=== PATIENT | male | born 1960 | race Caucasian/White ===

== ENCOUNTER 2017-08-05 12:49 | Emergency (ER) | payer MEDICAID ==
[~2017-08-05] VITALS: Ht 172.7 cm; Wt 65.9 kg
[2017-08-05 12:51] VITALS: BP 122/85
[2017-08-05] MEDS ORDERED: CEFAZOLIN 1,000 MG ONE (13:14)
[2017-08-05] MEDS ORDERED: IBUPROFEN 200 MG TABLET ONE (13:15)
[2017-08-05] MEDS ORDERED: OXYcodone/APAP 5/325MG TABLET ONE (13:15)
[2017-08-05] MEDS ORDERED: SULFAMETH./TRIMETHOPRIM DS 800MG/160MG TABLET ONE (13:15)
[2017-08-05] MEDS ORDERED: IBUPROFEN 200 MG TABLET PO ONE (13:30)
[2017-08-05] MEDS ORDERED: SULFAMETH./TRIMETHOPRIM DS 800MG/160MG TABLET PO ONE (13:30)
[2017-08-05] MEDS ORDERED: OXYcodone/APAP 5/325MG TABLET PO ONE (13:30)
[2017-08-05] MEDS ORDERED: CEFAZOLIN 1,000 MG IM ONE (13:30)
[2017-08-05 13:36] LABS: HEMATOCRIT 48.5 % (39.2-51.8); HEMOGLOBIN 16.4 g/dL (13.7-18.0); WHITE BLOOD COUNT 8.3 x10^3/uL (3.4-10)
[2017-08-05 13:47] LABS: BLOOD UREA NITROGEN 6 mg/dL (7-18)
[2017-08-05] MEDS ORDERED: BACITRACIN ZINC OINT 500U/GM, 0.9 GM ONE (14:49)
== END 2017-08-05 15:02 | disposition home or self-care (01) ==
LOC: ED 14:50
DX: L03.113 Cellulitis of right upper limb (principal)
CPT/HCPCS: 36415; 73110; 80048; 85025; 85651; 86141; 96372; 99285; J0690

== ENCOUNTER 2019-01-27 13:29 | Emergency (ER) | payer MEDICAID ==
[~2019-01-27] VITALS: Ht 172.7 cm; Wt 65.3 kg
[2019-01-27 13:31] VITALS: BP 135/85
== END 2019-01-27 15:23 | disposition home or self-care (01) ==
LOC: ED 15:04
DX: S52.591A Other fractures of lower end of right radius, initial encounter for closed fracture (principal); S52.611A Displaced fracture of right ulna styloid process, initial encounter for closed fracture; F17.200 Nicotine dependence, unspecified, uncomplicated; X58.XXXA Exposure to other specified factors, initial encounter; Y93.89 Activity, other specified; Y92.89 Other specified places as the place of occurrence of the external cause; Y99.8 Other external cause status
CPT/HCPCS: 29125; 99283

== ENCOUNTER 2019-01-30 02:30 | Emergency (ER) | payer MEDICAID ==
[~2019-01-30] VITALS: Ht 172.7 cm; Wt 65.3 kg
[2019-01-30] MEDS ORDERED: LIDOCAINE 2%, 20ML SQ ONE (03:00)
[2019-01-30] MEDS ORDERED: LIDOCAINE-MPF 1%, 5ML ONE (03:00)
[2019-01-30] MEDS ORDERED: ACETAMINOPHEN 500 MG TABLET PO ONE (03:30)
[2019-01-30] MEDS ORDERED: ACETAMINOPHEN 500 MG TABLET ONE (03:49)
[2019-01-30 03:54] VITALS: BP 133/82
== END 2019-01-30 03:56 | disposition home or self-care (01) ==
LOC: ED 03:14
DX: L03.012 Cellulitis of left finger (principal)
CPT/HCPCS: 10060; 99283; 99284

== ENCOUNTER 2019-05-13 16:03 | Emergency (ER) | payer MEDICAID ==
[~2019-05-13] VITALS: Ht 167.6 cm; Wt 63.2 kg
--- NOTE | 2019-05-13 16:43 | NUR ---
PT AMBULATORY TO RME FROM LOBBY WITH STEADY GAIT. NAD NOTED. RESP REGULAR AND UNLABORED. AWAITING EVAL BY PA. CALL LIGHT IN REACH. FALL PRECAUTIONS IN PLACE.
--- NOTE | 2019-05-13 17:04 | NUR ---
JJ PA AT BEDSIDE FOR EVALUATION
--- NOTE | 2019-05-13 17:29 | NUR ---
RX REQUESTED FROM PHARMACY
[2019-05-13] MEDS ORDERED: IBUPROFEN 200 MG TABLET PO ONE (17:30)
[2019-05-13] MEDS ORDERED: IBUPROFEN 200 MG TABLET ONE (17:35)
[2019-05-13] MEDS ORDERED: MUPIROCIN OINT 2%, 22GM TP ONE (18:00)
--- NOTE | 2019-05-13 18:00 | NUR ---
RX REQUESTED FROM [facility], [facility] CALLED, SENDING MEDICATION
--- NOTE | 2019-05-13 18:15 | NUR ---
MEDICATION APPLIED TO WOUNDS ON BILATERAL HANDS AND ANKLES PER ROB PUCKETT. AWAITING CHART AND DISCHARGE INSTRUCTIONS.
[2019-05-13 18:29] VITALS: BP 119/81
== END 2019-05-13 18:31 | disposition home or self-care (01) ==
LOC: ED 18:00
DX: L03.113 Cellulitis of right upper limb (principal); L03.116 Cellulitis of left lower limb; L03.115 Cellulitis of right lower limb; L03.114 Cellulitis of left upper limb; F17.200 Nicotine dependence, unspecified, uncomplicated
CPT/HCPCS: 99283

== ENCOUNTER 2019-11-04 10:39 | Emergency (ER) | payer MEDICAID ==
[~2019-11-04] VITALS: Ht 172.7 cm; Wt 66.0 kg
[2019-11-04 10:51] VITALS: BP 131/89
[2019-11-04] MEDS ORDERED: NEOSPORIN OINT. PKT 1 PACKET ONE (11:07)
[2019-11-04] MEDS ORDERED: DIPH,PERTUSS(ACELL),TET VAC/PF 0.5 ML IM-VACC ONE ×2 (11:11→11:30)
[2019-11-04] MEDS ORDERED: CEFAZOLIN 1,000 MG ONE (11:11)
[2019-11-04] MEDS ORDERED: CEFAZOLIN 1,000 MG IM ONE (11:30)
== END 2019-11-04 12:33 | disposition home or self-care (01) ==
LOC: ED 12:27
DX: L03.012 Cellulitis of left finger (principal); M79.642 Pain in left hand
CPT/HCPCS: 29125; 73130; 90471; 90715; 96372; 99283; J0690

== ENCOUNTER 2019-11-06 10:07 | Emergency (ER) | payer MEDICAID ==
[~2019-11-06] VITALS: Ht 172.7 cm; Wt 64.8 kg
[2019-11-06 10:20] VITALS: BP 110/73
== END 2019-11-06 11:08 | disposition home or self-care (01) ==
LOC: ED 10:50
DX: S60.423D Blister (nonthermal) of left middle finger, subsequent encounter (principal); X58.XXXD Exposure to other specified factors, subsequent encounter
CPT/HCPCS: 99281

== ENCOUNTER 2019-11-26 15:25 | Emergency (ER) | payer MEDICAID ==
[~2019-11-26] VITALS: Ht 172.7 cm; Wt 67.5 kg
[2019-11-26 15:37] VITALS: BP 151/84
--- NOTE | 2019-11-26 15:56 | NUR ---
PT CAME IN CO OF POSSIBLE LEFT MIDDLE FINGER INFECTION. SKIN IS TORN ON LEFT MIDDLE FINGER AND FINGER IS SWOLLEN. SWELLING EXTENDS DOWN TO HIS LEFT HAND WELL. THIS HAS BEEN ONGOING FOR ABOUT 3 WEEKS. AND THIS IS THE 3RD TIME HE HAS CAME INTO THE ER. HE HAS COMPLETED A COURSE OF ABX ALREADY. CALL LIGHT WITHIN REACH
[2019-11-26] MEDS ORDERED: NEOSPORIN OINT. PKT 1 PACKET ONE ×3 (16:08→16:21)
== END 2019-11-26 16:49 | disposition home or self-care (01) ==
LOC: ED 16:44
DX: S61.233A Puncture wound without foreign body of left middle finger without damage to nail, initial encounter (principal); F17.200 Nicotine dependence, unspecified, uncomplicated; X58.XXXA Exposure to other specified factors, initial encounter; Y93.89 Activity, other specified; Y92.89 Other specified places as the place of occurrence of the external cause; Y99.8 Other external cause status
CPT/HCPCS: 99283

== ENCOUNTER 2019-12-13 01:01 | Emergency (ER) | payer MEDICAID ==
[~2019-12-13] VITALS: Ht 172.7 cm; Wt 66.0 kg
[2019-12-13] MEDS ORDERED: KETOROLAC 30 MG/1 ML ONE (01:40)
--- NOTE | 2019-12-13 01:49 | NUR ---
Medicated per MAR, given ice pack for knee. Side rails up, call light within reach. Waiting for xray.
--- NOTE | 2019-12-13 01:57 | NUR ---
PT TO XRAY VIA PAM.
[2019-12-13] MEDS ORDERED: KETOROLAC 30 MG/1 ML IM ONE (02:00)
--- NOTE | 2019-12-13 02:05 | NUR ---
PT BACK FROM [facility] VIA [facility] AT THIS TIME.
[2019-12-13] MEDS ORDERED: LIDOCAINE 1%, 10ML INFIL ONE (02:30)
[2019-12-13] MEDS ORDERED: LIDOCAINE-MPF 1%, 5ML ONE (02:33)
--- NOTE | 2019-12-13 04:52 | NUR ---
PT D/C WITH D/C SUMMARY AND SCRIPTS. ALL QUESTIONS ANSWERED. PT VERBALIZES UNDERSTANDING OF NEED FOR HOME CARE AND F/U INSTRUCTIONS. PT AMBULATES TO REGISTRATION DESK WITH SLOW AND STEADY GAIT FOR D/C HOME.
[2019-12-13 04:54] VITALS: BP 147/89
== END 2019-12-13 04:56 | disposition home or self-care (01) ==
LOC: ED 01:50
DX: M25.561 Pain in right knee (principal); F17.200 Nicotine dependence, unspecified, uncomplicated; W01.0XXA Fall on same level from slipping, tripping and stumbling without subsequent striking against object, initial encounter; Y93.01 Activity, walking, marching and hiking; Y92.89 Other specified places as the place of occurrence of the external cause; Y99.8 Other external cause status
CPT/HCPCS: 20610; 73564; 82945; 83615; 84157; 84560; 85810; 87070; 87205; 89050; 89060; 96372; 99284; J1885

== ENCOUNTER 2020-01-08 17:14 | Emergency (ER) | payer MEDICAID ==
[~2020-01-08] VITALS: Ht 170.2 cm; Wt 64.4 kg
[2020-01-08 17:18] VITALS: BP 107/71
--- NOTE | 2020-01-08 17:47 | NUR ---
PT HERE FOR BEDBUGS- STATES HE WAS SEEN RECENTLY FOR HX OF SAME. REQUESTING MEDICATION AND NEW CLOTHES.
--- NOTE | 2020-01-08 17:49 | NUR ---
EVENT DESIGNER SUPPLYING PT WITH CLOTHES FROM [employer].
== END 2020-01-08 18:15 ==
LOC: ED 18:00
DX: L03.90 Cellulitis, unspecified (principal); B86 Scabies; F17.210 Nicotine dependence, cigarettes, uncomplicated
CPT/HCPCS: 99283

== ENCOUNTER 2020-02-28 12:49 | Emergency (ER) | payer MEDICAID ==
[~2020-02-28] VITALS: Ht 172.7 cm; Wt 65.0 kg
--- NOTE | 2020-02-28 12:57 | NUR ---
PT BIB [facility]. WAS FOUND LYING ON THE SIDEWALK AND WAS UNABLE TO AMBULATE. PT ADMITS TO DRINKING TODAY. PTS RIGHT KNEE IS VERY SWOLLEN AND IS VERY PAINFUL. PT SAYS HE FELL OFF A BUILDING. PT RESTING IS HOOKED UP TO UNISAW OPERATOR, PULSE OX. 94% ON 2 LITERS. PT DNEIES MEDICAL HX
[2020-02-28 14:04] VITALS: BP 97/66
--- NOTE | 2020-02-28 14:05 | NUR ---
PT RESTING IN [facility]. WATCHING TV
[2020-02-28] MEDS ORDERED: HYDROcodone/APAP 5/325 TABLET ONE (14:14)
--- NOTE | 2020-02-28 14:17 | NUR ---
PT MEDICATED PER MAR
[2020-02-28] MEDS ORDERED: HYDROcodone/APAP 5/325 TABLET PO ONE (14:30)
== END 2020-02-28 15:37 | disposition home or self-care (01) ==
LOC: ED 12:56
DX: S82.001A Unspecified fracture of right patella, initial encounter for closed fracture (principal); W13.9XXA Fall from, out of or through building, not otherwise specified, initial encounter; Y93.89 Activity, other specified; Y92.89 Other specified places as the place of occurrence of the external cause; Y99.8 Other external cause status
CPT/HCPCS: 99283

== ENCOUNTER 2020-04-15 14:15 | Emergency (ER) | payer MEDICAID ==
[~2020-04-15] VITALS: Ht 180.3 cm; Wt 70.0 kg
[2020-04-15 14:25] VITALS: BP 109/57
--- NOTE | 2020-04-15 14:29 | NUR ---
BREAK RN:: PT LAYING IN BED, YELLING, "FUCK YOU", REPEATEDLY. PT CURSING CAN BE HEARD IN HALLWAY AND AT NURSING STATION. PT HAS STATED HE DOESN'T WANT ANYTHING DONE. WILL CONTINUE TO MONITOR.
--- NOTE | 2020-04-15 14:50 | NUR ---
BREAK RN:: PT ALLOWED CXR AND LABS TO BE DRAWN.
[2020-04-15 14:54] LABS: BASOPHILS # (AUTO) 0.03 x10^3/uL (0-0.1); BASOPHILS % (AUTO) 0 % (0-1); EOSINOPHILS # (AUTO) 0.18 x10^3/uL (0-0.4); EOSINOPHILS % (AUTO) 2 % (1-7); LYMPHOCYTES # (AUTO) 2.05 x10^3/uL (1-3.4); LYMPHOCYTES % (AUTO) 23 % (22-44); MD NO; MEAN CORPUSCULAR HEMOGLOBIN 31.3 pg (27.5-34.5); MEAN CORPUSCULAR HGB CONC 33.6 g/dL (33.2-36.2); MEAN CORPUSCULAR VOLUME 93.2 fL (81-97); MEAN PLATELET VOLUME 6.8 fL (7.4-10.4); MONOCYTES # (AUTO) 0.71 x10^3/uL (0.2-0.8); MONOCYTES % (AUTO) 8 % (2-9); NEUTROPHILS # (AUTO) 5.89 x10^3/uL (1.8-6.8); NEUTROPHILS % (AUTO) 67 % (42-75); PLATELET COUNT 151 x10^3/uL (130-400); RED BLOOD COUNT 4.95 x10^6/uL (4.38-5.82); RED CELL DISTRIBUTION WIDTH 15.2 % (9.4-14.8)
--- NOTE | 2020-04-15 14:54 | NUR ---
BREAK RN:: PT SATING 77% ON RA, PT HAS REMOVED N/C. THIS RN WENT TO PLACE N/C ON PT, PT PULLED IT OFF, SAYING, "MY LUNGS ARE GOOD, I DON'T NEED THAT". PT ABLE TO REPOSITION SELF IN RAINSWORTH, O2 SAT NOW 91% ON RA.
--- NOTE | 2020-04-15 15:01 | NUR ---
BREAK RN:: PT O2 SAT 84% ON RA, ATTEMPTED TO PLACE OXYGEN ON PT, PT STATED, "NO, I DON'T WANT THAT, I WON'T BE ON OXYGEN WHEN I LEAVE HERE, SO DON'T PUT THAT ON ME." PT STATED HE WANTED TO LEAVE BECUASE HE DOESN'T KNOW WHY HE'S HERE. EXPLAINED TO PT MULTIPLE TIMES WHY HE IS HERE. PT THEN STATED, "WELL THEN I'LL JUST LAY DOWN". PT CURRENTLY RESTING IN [facility] EATING CRACKERS AND JUICE.
[2020-04-15 15:03] LABS: ALANINE AMINOTRANSFERASE 152 U/L (12-78); ANION GAP 11 mmol/L (5-15); CALCIUM 8.3 mg/dL (8.5-10.1); CHLORIDE 104 mmol/L (98-107); CREATININE 0.88 mg/dL (0.7-1.3)
[2020-04-15 15:09] LABS: ALKALINE PHOSPHATASE 93 U/L (45-117); BILIRUBIN,TOTAL 0.5 mg/dL (0.2-1.0); TOTAL PROTEIN 7.8 g/dL (6.4-8.2)
--- NOTE | 2020-04-15 15:25 | NUR ---
PT DISCONNECTED SELF FROM MONITORS BECAUSE HE "WANTS TO GO SMOKE A CIGERETTE." PT EDUCATED THAT HE CANNOT LEAVE AND COMEBACK. PT VERBALIZED UNDERSTANDING, REMAINS IN BED.
[2020-04-15] MEDS ORDERED: CEFTRIAXONE 1,000 MG ONE (15:27)
[2020-04-15] MEDS ORDERED: SODIUM CHLORIDE FLUSH 10ML SYR IVF ONE (15:30)
[2020-04-15] MEDS ORDERED: CEFTRIAXONE 1,000 MG IM ONE (15:30)
[2020-04-15] MEDS ORDERED: CEFTRIAXONE PMX 1GM/50ML 50 ML IVPB ONE (15:30)
--- NOTE | 2020-04-15 15:43 | NUR ---
PT EDUCATED TO WHERE HE IS AND WHY. PT DENIES WANTING ANY INTERVENTIONS, LAYING IN BED, NO SIGNS OF DISTRESS.
--- NOTE | 2020-04-15 16:47 | NUR ---
PT LAYING IN BED, JACKET OVER FACE, RESPIRATIONS EVEN AND UNLABORED, STILL REFUSING VITALS. WILL CONTINUE TO MONITOR.
--- NOTE | 2020-04-15 17:31 | NUR ---
PT MOVED TO A NEW POSITION, STILL LAYING IN BED, NO SIGNS OF DISTRESS, WILL CONTINUE TO MONITOR.
--- NOTE | 2020-04-15 17:34 | NUR ---
PT WANDERED DOWN VIGIL LOOKING FOR RESTROOM. PT AMBULATED W/ A STEADY GAIT. PRIMARY RN RODOLFO NOTIFIED.
== END 2020-04-15 17:44 | disposition home or self-care (01) ==
LOC: ED 16:06
DX: J18.9 Pneumonia, unspecified organism (principal); F10.220 Alcohol dependence with intoxication, uncomplicated; Y90.9 Presence of alcohol in blood, level not specified
CPT/HCPCS: 36415; 71045; 80053; 80307; 85025; 99284

== ENCOUNTER 2020-07-09 21:26 | Emergency (ER) | payer MEDICAID ==
[~2020-07-09] VITALS: Ht 172.7 cm; Wt 70.0 kg
--- NOTE | 2020-07-09 22:23 | NUR ---
PT BIB EMS FOR ETOH. PT WAS FOUND LAYING ON SIDEWALK. PT FELL ON FACE AND HAS MULTPLE ABRASIONS AND BRUISES ON FACE. PT CONNECTED TO MONITORING EQUIPMENT.
[2020-07-09 23:01] LABS: MEAN CORPUSCULAR HGB CONC 32.8 g/dL (33.2-36.2); MEAN CORPUSCULAR VOLUME 97.6 fL (81-97); MEAN PLATELET VOLUME 6.9 fL (7.4-10.4); PLATELET COUNT 190 x10^3/uL (130-400); RED BLOOD COUNT 4.47 x10^6/uL (4.38-5.82)
[2020-07-09 23:09] LABS: ANION GAP 10 mmol/L (5-15); CHLORIDE 105 mmol/L (98-107)
[2020-07-09 23:16] LABS: ALANINE AMINOTRANSFERASE 106 U/L (12-78); ALKALINE PHOSPHATASE 71 U/L (45-117); BILIRUBIN,TOTAL 0.5 mg/dL (0.2-1.0); CREATININE 0.77 mg/dL (0.7-1.3); TOTAL PROTEIN 8.1 g/dL (6.4-8.2)
[2020-07-09 23:36] LABS: BASOPHILS # (AUTO) 0.06 x10^3/uL (0-0.1); BASOPHILS % (AUTO) 1 % (0-1); EOSINOPHILS # (AUTO) 0.18 x10^3/uL (0-0.4); EOSINOPHILS % (AUTO) 3 % (1-7); LYMPHOCYTES # (AUTO) 3.73 x10^3/uL (1-3.4); LYMPHOCYTES % (AUTO) 67 % (22-44); MD SCAN; MONOCYTES # (AUTO) 0.41 x10^3/uL (0.2-0.8); MONOCYTES % (AUTO) 7 % (2-9); NEUTROPHILS % (AUTO) 22 % (42-75)
[2020-07-09 23:45] VITALS: BP 126/85
--- NOTE | 2020-07-09 23:45 | NUR ---
PT RESTING IN [facility]. VSS. UP FOR RE CHECK AT THIS TIME
== END 2020-07-10 00:30 | disposition home or self-care (01) ==
LOC: ED 07-10 00:29
DX: S02.2XXA Fracture of nasal bones, initial encounter for closed fracture (principal); S00.81XA Abrasion of other part of head, initial encounter; S40.812A Abrasion of left upper arm, initial encounter; F10.220 Alcohol dependence with intoxication, uncomplicated; F17.210 Nicotine dependence, cigarettes, uncomplicated; Z72.9 Problem related to lifestyle, unspecified; W19.XXXA Unspecified fall, initial encounter; Y93.89 Activity, other specified; Y92.89 Other specified places as the place of occurrence of the external cause; Y99.8 Other external cause status; Y90.9 Presence of alcohol in blood, level not specified
CPT/HCPCS: 36415; 70450; 70486; 80053; 80307; 85025; 99285; 99406

== ENCOUNTER 2020-07-12 08:31 | Inpatient (IN) | payer MEDICAID ==
[~2020-07-12] VITALS: Ht 172.7 cm; Wt 62.7 kg
[2020-07-12] MEDS ORDERED: HYDROcodone/APAP 5/325 TABLET ONE (08:51)
--- NOTE | 2020-07-12 08:56 | NUR ---
PT TO RAD.
[2020-07-12] MEDS ORDERED: HYDROcodone/APAP 5/325 TABLET PO ONE (09:00)
--- NOTE | 2020-07-12 09:08 | NUR ---
FSBS 106. PT MEDICATED PER EMAR.
--- NOTE | 2020-07-12 09:10 | NUR ---
THIS IS A 59 YO M W/ C/O LT ARM SWELLING AND PAIN X2 DAYS POST FALL. PT TACHYCARDIC, OTHER VS WDL. RESTING ON GURNEY W/ CALL LIGHT IN REACH, SIDE RAILS UPX2. NADN.
[2020-07-12 09:32] LABS: MEAN CORPUSCULAR HGB CONC 32.8 g/dL (33.2-36.2); MEAN CORPUSCULAR VOLUME 97.8 fL (81-97); MEAN PLATELET VOLUME 7.4 fL (7.4-10.4); PLATELET COUNT 127 x10^3/uL (130-400); RED BLOOD COUNT 4.58 x10^6/uL (4.38-5.82); RED CELL DISTRIBUTION WIDTH 13.8 % (9.4-14.8)
[2020-07-12 09:45] LABS: BASOPHILS # (AUTO) 0.04 x10^3/uL (0-0.1); BASOPHILS % (AUTO) 0 % (0-1); EOSINOPHILS % (AUTO) 0 % (1-7); LYMPHOCYTES # (AUTO) 1.86 x10^3/uL (1-3.4); LYMPHOCYTES % (AUTO) 10 % (22-44); MD SCAN; MONOCYTES # (AUTO) 0.52 x10^3/uL (0.2-0.8); MONOCYTES % (AUTO) 3 % (2-9); NEUTROPHILS # (AUTO) 16.26 x10^3/uL (1.8-6.8); NEUTROPHILS % (AUTO) 87 % (42-75)
--- NOTE | 2020-07-12 09:45 | NUR ---
THIS RN UNABLE TO START PIV AFTER 2 ATTEMPTS. DOROTHEA RN AT BEDSIDE FOR ATTEMPT.
[2020-07-12] MEDS ORDERED: FAMOTIDINE 20 MG/2 ML ONE (09:47)
[2020-07-12] MEDS ORDERED: CALCIUM CARBONATE 500 MG TAB.CHEW ONE (09:47)
[2020-07-12] MEDS ORDERED: FAMOTIDINE 20 MG/2 ML IVPush ONE (10:00)
[2020-07-12] MEDS ORDERED: CALCIUM CARBONATE 500 MG TAB.CHEW PO PRN (10:00)
--- NOTE | 2020-07-12 10:25 | NUR ---
DOROTHEA RN AND ARNULFO RN UNABLE TO START PIV AT THIS TIME. KERRY FREEMAN W/ AT BEDSIDE W/ US FOR PIV ATTEMPT.
[2020-07-12 10:32] LABS: ANION GAP 12 mmol/L (5-15); CALCIUM 8.6 mg/dL (8.5-10.1); CHLORIDE 95 mmol/L (98-107); CREATININE 0.69 mg/dL (0.7-1.3)
--- NOTE | 2020-07-12 10:42 | NUR ---
PIV STARTED BY KERRY FREEMAN. CT CALLED TO COME GET PT FOR SCAN.
--- NOTE | 2020-07-12 10:50 | NUR ---
PT TO CT.
[2020-07-12] MEDS ORDERED: SODIUM CHLORIDE 0.9% 1,000ML IVBOLUS ONE (11:00)
--- NOTE | 2020-07-12 11:18 | NUR ---
PT RETURN FROM CT
[2020-07-12] MEDS ORDERED: OMNIPAQUE 350 MG/ML, 100ML BOTTLE ONE (11:36)
--- NOTE | 2020-07-12 11:41 | NUR ---
PT 86% RA, PLACED ON 2L W/ DESIRED EFFECT. OTHER VS WDL. PT RESTING ON GURNEY W/ CALL LIGHT IN REACH AND SIDE RAILS UPX2. DENIES FURTHER NEEDS AT THIS TIME.
[2020-07-12] MEDS ORDERED: AMPICILLIN/SULBACTAM 3 GM in SODIUM CHLORIDE 0.9% 100 ML IV ONE (12:30)
[2020-07-12] MEDS ORDERED: VANCOMYCIN PER PHARMACY MC PRN (12:30)
[2020-07-12] MEDS ORDERED: VANCOMYCIN 1,500 MG in SODIUM CHLORIDE 0.9% 250 ML IV ONE (12:30)
--- NOTE | 2020-07-12 13:18 | NUR ---
REPORT GIVEN TO PRECIOUS FREEMAN. PT IS READY FOR TRANSPORT AT THIS TIME W/ VANCO INFUSING APPROPRIATELY.
[2020-07-12 14:30] VITALS: BP 145/89
[2020-07-12] MEDS ORDERED: KETOROLAC 30 MG/1 ML IV PRN (14:30)
[2020-07-12] MEDS ORDERED: ONDANSETRON 2MG/ML, 2ML IVPush PRN (14:30)
[2020-07-12] MEDS ORDERED: ENOXAPARIN 40 MG/0.4 ML SQ SCH (14:30)
[2020-07-12] MEDS ORDERED: hydrALAzine 20 MG/ML, 1ML IVPush PRN (14:30)
[2020-07-12] MEDS: SODIUM CHLORIDE 0.9% 1,000 ML IV SCH (14:42)
[2020-07-12 14:54] VITALS: BP 145/89
[2020-07-12] MEDS ORDERED: PHARMACOKINETIC MONITORING MC PRN (15:00)
[2020-07-12] MEDS ORDERED: PHARMACOKINETIC CONSULTATION MC ONE (15:00)
[2020-07-12 15:21] LABS: AMPHETAMINE SCREEN, URINE Negative (Negative); BARBITURATE SCREEN, URINE Negative (Negative); BENZODIAZEPINE SCREEN, URINE Negative (Negative); CANNABINOID SCREEN, URINE Negative (Negative); COCAINE SCREEN, URINE Negative (Negative); METHADONE SCREEN, URINE Negative (Negative); OPIATE SCREEN, URINE Positive (Negative)
[2020-07-12] MEDS: NICOTINE 21 MG/24 HR PATCH.TD24 TD SCH (15:30)
[2020-07-12] MEDS: OXYcodone IR 5MG TABLET PO PRN ×2 (15:30→22:29)
[2020-07-12] MEDS ORDERED: LORazepam 2 MG/ML, 1ML IV PRN ×4 (15:30)
[2020-07-12] MEDS: LORazepam 2 MG/ML, 1ML IV PRN (16:06)
[2020-07-12] MEDS: CHLORDIAZEPOXIDE 25 MG CAPSULE PO SCH ×2 (16:06→21:35)
[2020-07-12 20:18] VITALS: BP 126/80
[2020-07-12] MEDS: ACETAMINOPHEN 325 MG TABLET PO PRN (21:33)
[2020-07-13] MEDS: LORazepam 2 MG/ML, 1ML IV PRN ×2 (01:15→12:47)
[2020-07-13 01:23] VITALS: BP 118/76
[2020-07-13] MEDS: CHLORDIAZEPOXIDE 25 MG CAPSULE PO SCH ×2 (03:34→09:50)
[2020-07-13] MEDS: SODIUM CHLORIDE 0.9% 1,000 ML IV SCH (03:34)
[2020-07-13 05:25] LABS: ANION GAP 4 mmol/L (5-15); CALCIUM 8.4 mg/dL (8.5-10.1); CHLORIDE 103 mmol/L (98-107); CREATININE 0.84 mg/dL (0.7-1.3)
[2020-07-13] MEDS ORDERED: VANCOMYCIN 1,200 MG in SODIUM CHLORIDE 0.9% 250 ML IV SCH (06:00)
[2020-07-13 06:18] LABS: MD YES; MEAN CORPUSCULAR HEMOGLOBIN 31.6 pg (27.5-34.5); MEAN CORPUSCULAR VOLUME 98.9 fL (81-97); MEAN PLATELET VOLUME 7.8 fL (7.4-10.4); PLATELET COUNT 86 x10^3/uL (130-400); RED BLOOD COUNT 4.94 x10^6/uL (4.38-5.82); RED CELL DISTRIBUTION WIDTH 14.1 % (9.4-14.8)
[2020-07-13 06:20] LABS: <PLATELET ESTIMATE> DECREASED; <PLT MORPHOLOGY> NORMAL PLT MORPH; <RBC MORPHOLOGY> NORMAL; BAND#(MANUAL) 1.83 x10^3/uL; BANDS%(MANUAL) 15 % (0-7); LYMPH#(MANUAL) 0.85 x10^3/uL (1-3.4); LYMPHS% (MANUAL) 7 % (22-44); METAMYELOCYTES# (MANUAL) 0.12 x10^3/uL (0-0); METAMYELOCYTES% (MANUAL) 1 % (0-1); MONOS#(MANUAL) 0.49 x10^3/uL (0.3-2.7); MONOS% (MANUAL) 4 % (2-9); PMNS WITH VACUOLES 1+; SEG#(MANUAL) 8.91 x10^3/uL (1.8-6.8); SEGS% (MANUAL) 73 % (42-75)
[2020-07-13 06:30] VITALS: BP 147/99
[2020-07-13] MEDS ORDERED: SENNA/DOCUSATE TABLET PO SCH (09:00)
[2020-07-13] MEDS ORDERED: VANCOMYCIN PER PHARMACY MC SCH (09:00)
[2020-07-13] MEDS ORDERED: MULTIVITAMINS/MINERALS TABLET PO SCH (09:00)
[2020-07-13] MEDS: OXYcodone IR 5MG TABLET PO PRN (09:49)
[2020-07-13 13:57] VITALS: BP 110/72
[2020-07-13] MEDS: ACETAMINOPHEN 325 MG TABLET PO PRN (14:06)
[2020-07-13] MEDS: NICOTINE 21 MG/24 HR PATCH.TD24 TD SCH (14:30)
[2020-07-13] MEDS ORDERED: CHLORDIAZEPOXIDE 25 MG CAPSULE PO SCH (15:30)
== END 2020-07-13 17:00 | disposition left against medical advice (07) | DRG 872 ==
LOC: ED 08:51 → EDIP 12:46 → 3N 13:36
PROVIDERS: ADMIT Internal Medicine Infectious Disease; ATTEND Hospitalist
DX: A41.9 Sepsis, unspecified organism (principal); E87.1 Hypo-osmolality and hyponatremia; E87.2 Acidosis; F10.239 Alcohol dependence with withdrawal, unspecified; L03.114 Cellulitis of left upper limb; Z53.29 Procedure and treatment not carried out because of patient's decision for other reasons; R65.20 Severe sepsis without septic shock; D69.6 Thrombocytopenia, unspecified; F10.229 Alcohol dependence with intoxication, unspecified; F17.200 Nicotine dependence, unspecified, uncomplicated; S59.902A Unspecified injury of left elbow, initial encounter; W01.0XXA Fall on same level from slipping, tripping and stumbling without subsequent striking against object, initial encounter; Y93.89 Activity, other specified; Y92.89 Other specified places as the place of occurrence of the external cause; Y99.8 Other external cause status; S69.92XA Unspecified injury of left wrist, hand and finger(s), initial encounter; S59.912A Unspecified injury of left forearm, initial encounter; Y90.9 Presence of alcohol in blood, level not specified
CPT/HCPCS: 36415; 73080; 73110; 84145; 96361; 96365; 96375; 99291; J3490; 80048; 80307; 82607; 82728; 82962; 83540; 83550; 83605; 85025; 87040; G0378; J0295; J1650; J1885; J3370; Q9967; J2060; J7030; J7050

== ENCOUNTER 2020-07-13 19:13 | Emergency (ER) | payer MEDICAID ==
[~2020-07-13] VITALS: Ht 172.7 cm; Wt 61.5 kg
--- NOTE | 2020-07-13 19:15 | NUR ---
pt BIB [facility] after being found laying down in the street in the rain. pt stated to [facility] that he was having L FA redness and swelling with pain. pt is homeless and states that they would not let him into the half-way tonight. pt is ambulatory and SOUZA without difficulty. pt has redness to L FA and some scabbing. no open wounds or obvious drainage. pt states that he wants water and coffee. pt states that he wants something to eat and is asking for remote as he wants to watch TV. no family at bedside
--- NOTE | 2020-07-13 19:34 | NUR ---
Dr. Cardona has been to bedside for eval
--- NOTE | 2020-07-13 19:37 | NUR ---
pt reports that he takes no medications
--- NOTE | 2020-07-13 19:38 | NUR ---
pt left the hospital AMA this afternoon
[2020-07-13] MEDS ORDERED: ACETAMINOPHEN 500 MG TABLET PO ONE (20:00)
[2020-07-13] MEDS ORDERED: VANCOMYCIN PER PHARMACY MC ONE (20:00)
[2020-07-13 20:17] LABS: MEAN CORPUSCULAR HEMOGLOBIN 31.8 pg (27.5-34.5); MEAN CORPUSCULAR HGB CONC 32.3 g/dL (33.2-36.2); MEAN CORPUSCULAR VOLUME 98.6 fL (81-97); MEAN PLATELET VOLUME 7.7 fL (7.4-10.4); PLATELET COUNT 109 x10^3/uL (130-400); RED BLOOD COUNT 4.09 x10^6/uL (4.38-5.82)
[2020-07-13] MEDS ORDERED: VANCOMYCIN 1,500 MG in SODIUM CHLORIDE 0.9% 250 ML IV ONE (20:30)
[2020-07-13 20:32] LABS: MD YES
[2020-07-13 20:35] LABS: BAND#(MANUAL) 2.12 x10^3/uL; BANDS%(MANUAL) 18 % (0-7); LYMPH#(MANUAL) 0.24 x10^3/uL (1-3.4); LYMPHS% (MANUAL) 2 % (22-44); MONOS#(MANUAL) 0.35 x10^3/uL (0.3-2.7); MONOS% (MANUAL) 3 % (2-9); SEG#(MANUAL) 9.09 x10^3/uL (1.8-6.8); SEGS% (MANUAL) 77 % (42-75)
[2020-07-13 20:36] LABS: <PLATELET ESTIMATE> DECREASED; <PLT MORPHOLOGY> NORMAL PLT MORPH; <RBC MORPHOLOGY> NORMAL
--- NOTE | 2020-07-13 21:00 | NUR ---
pt still sleeping in position of comfort. vanco infusing. no apparent distress
[2020-07-13] MEDS ORDERED: ACETAMINOPHEN 500 MG TABLET ONE (21:48)
--- NOTE | 2020-07-13 21:58 | NUR ---
chart up for Md recheck. pt has ambulated to BR
[2020-07-13 22:39] VITALS: BP 112/76
== END 2020-07-13 22:45 | disposition home or self-care (01) ==
LOC: ED 20:55
DX: L03.114 Cellulitis of left upper limb (principal); F10.129 Alcohol abuse with intoxication, unspecified; Z59.0 Homelessness; Z72.9 Problem related to lifestyle, unspecified; R00.0 Tachycardia, unspecified; F17.200 Nicotine dependence, unspecified, uncomplicated; Y90.9 Presence of alcohol in blood, level not specified
CPT/HCPCS: 36415; 85025; 96365; 99284; J3370; J7050

== ENCOUNTER 2020-07-13 23:31 | Inpatient (IN) | payer MEDICAID ==
[~2020-07-13] VITALS: Ht 172.7 cm; Wt 62.7 kg
[2020-07-13 23:57] LABS: MEAN PLATELET VOLUME 7.8 fL (7.4-10.4); PLATELET COUNT 107 x10^3/uL (130-400); RED BLOOD COUNT 3.97 x10^6/uL (4.38-5.82)
[2020-07-14 00:08] LABS: ALBUMIN 2.2 g/dL (3.4-5.0); ANION GAP 7 mmol/L (5-15); CALCIUM 8.5 mg/dL (8.5-10.1); CHLORIDE 105 mmol/L (98-107); CREATININE 0.72 mg/dL (0.7-1.3)
[2020-07-14 00:12] LABS: TROPONIN I < 0.015 ng/mL (0.000-0.045)
[2020-07-14 00:31] LABS: MD YES
[2020-07-14 00:35] LABS: BAND#(MANUAL) 0.45 x10^3/uL; BANDS%(MANUAL) 4 % (0-7); LYMPH#(MANUAL) 1.02 x10^3/uL (1-3.4); LYMPHS% (MANUAL) 9 % (22-44); MONOS#(MANUAL) 0.45 x10^3/uL (0.3-2.7); MONOS% (MANUAL) 4 % (2-9); SEG#(MANUAL) 9.38 x10^3/uL (1.8-6.8); SEGS% (MANUAL) 83 % (42-75)
[2020-07-14 00:38] LABS: <PLATELET ESTIMATE> DECREASED; <PLT MORPHOLOGY> NORMAL PLT MORPH; <RBC MORPHOLOGY> NORMAL
--- NOTE | 2020-07-14 01:24 | NUR ---
PT SLEEPING, RESPIRATIONS EVEN AND UNLABORED. NO SIGNS OF DISTRESS.
[2020-07-14] MEDS ORDERED: CEFTRIAXONE PMX 1GM/50ML 50 ML IV ONE (01:30)
--- NOTE | 2020-07-14 01:45 | NUR ---
Break RN: IV placed. IV antibiotic started. awaiting bed assignment.
[2020-07-14] MEDS ORDERED: CEFTRIAXONE PMX 1GM/50ML 50 ML ONE (01:51)
[2020-07-14] MEDS ORDERED: VANCOMYCIN PER PHARMACY MC PRN (02:00)
[2020-07-14] MEDS ORDERED: LORazepam 2 MG/ML, 1ML IV PRN ×3 (02:00)
[2020-07-14] MEDS ORDERED: DOCUSATE 100 MG CAPSULE PO PRN (02:00)
[2020-07-14] MEDS ORDERED: ONDANSETRON 2MG/ML, 2ML IVPush PRN (02:00)
[2020-07-14] MEDS ORDERED: PROMETHAZINE 25 MG/ML, 1ML IM PRN (02:00)
[2020-07-14] MEDS ORDERED: hydrALAzine 20 MG/ML, 1ML IVPush PRN (02:00)
[2020-07-14] MEDS ORDERED: LORazepam 1MG TABLET PO PRN ×3 (02:00)
[2020-07-14] MEDS ORDERED: morphine SULFATE 10 MG/ML, 1ML IVPush PRN (02:00)
[2020-07-14] MEDS ORDERED: BISACODYL 10 MG SUPP PR PRN (02:00)
[2020-07-14] MEDS ORDERED: POLYETHYLENE GLYCOL 17 GM PACKET PO PRN (02:00)
[2020-07-14] MEDS ORDERED: OXYcodone IR 5MG TABLET PO PRN (02:00)
[2020-07-14] MEDS ORDERED: ONDANSETRON ODT 4 MG PO PRN (02:00)
[2020-07-14] MEDS ORDERED: VANCOMYCIN PMX 1GM/200ML 200 ML IV ONE (02:00)
--- NOTE | 2020-07-14 02:13 | NUR ---
bed assigned. report to LYDIA Garg
[2020-07-14 02:27] VITALS: BP 123/84
[2020-07-14] MEDS ORDERED: PHARMACOKINETIC MONITORING MC PRN (02:30)
[2020-07-14] MEDS ORDERED: PHARMACOKINETIC CONSULTATION MC ONE (02:30)
[2020-07-14] MEDS: ENOXAPARIN 40 MG/0.4 ML SQ SCH (03:38)
[2020-07-14] MEDS: SODIUM CHLORIDE 0.9% 1,000 ML IV SCH ×2 (03:38→16:19)
[2020-07-14] MEDS: VANCOMYCIN 1,300 MG in SODIUM CHLORIDE 0.9% 250 ML IV SCH ×2 (03:38→14:41)
[2020-07-14 05:48] LABS: BASOPHILS # (AUTO) 0.01 x10^3/uL (0-0.1); BASOPHILS % (AUTO) 0 % (0-1); EOSINOPHILS # (AUTO) 0.03 x10^3/uL (0-0.4); EOSINOPHILS % (AUTO) 0 % (1-7); LYMPHOCYTES # (AUTO) 1.11 x10^3/uL (1-3.4); LYMPHOCYTES % (AUTO) 11 % (22-44); MD NO; MEAN CORPUSCULAR HEMOGLOBIN 32.3 pg (27.5-34.5); MEAN CORPUSCULAR HGB CONC 32.9 g/dL (33.2-36.2); MEAN PLATELET VOLUME 8.1 fL (7.4-10.4); MONOCYTES # (AUTO) 0.48 x10^3/uL (0.2-0.8); MONOCYTES % (AUTO) 5 % (2-9); NEUTROPHILS % (AUTO) 84 % (42-75); PLATELET COUNT 101 x10^3/uL (130-400); RED BLOOD COUNT 3.97 x10^6/uL (4.38-5.82); RED CELL DISTRIBUTION WIDTH 13.9 % (9.4-14.8)
[2020-07-14 05:51] LABS: INTERNATIONAL NORMALIZED RATIO 1.01 (0.93-1.1); PROTHROMBIN TIME 10.4 Seconds (9.6-11.5)
[2020-07-14 05:58] LABS: CHLORIDE 106 mmol/L (98-107)
[2020-07-14 06:14] LABS: ALANINE AMINOTRANSFERASE 50 U/L (12-78); ALBUMIN 2.1 g/dL (3.4-5.0); ALKALINE PHOSPHATASE 60 U/L (45-117); ANION GAP 7 mmol/L (5-15); BILIRUBIN,TOTAL 0.8 mg/dL (0.2-1.0); CALCIUM 8.7 mg/dL (8.5-10.1); CREATININE 0.53 mg/dL (0.7-1.3); TOTAL PROTEIN 6.9 g/dL (6.4-8.2)
[2020-07-14 09:58] VITALS: BP 116/95
[2020-07-14] MEDS: THIAMINE 100MG TABLET PO SCH ×2 (10:06→21:00)
[2020-07-14 16:02] VITALS: BP 133/89
[2020-07-14] MEDS: LORazepam 2 MG/ML, 1ML IV PRN ×2 (16:53→23:26)
[2020-07-14] MEDS: ACETAMINOPHEN 325 MG TABLET PO PRN (16:54)
[2020-07-14] MEDS ORDERED: MAALOX/HYOSCYAMINE/LIDOCAINE 45 ML BTL PO ONE (17:00)
[2020-07-14 20:29] VITALS: BP 138/93
[2020-07-15] MEDS: VANCOMYCIN 1,300 MG in SODIUM CHLORIDE 0.9% 250 ML IV SCH ×2 (02:00→14:48)
[2020-07-15] MEDS: ENOXAPARIN 40 MG/0.4 ML SQ SCH (02:00)
[2020-07-15 02:23] VITALS: BP 129/83
[2020-07-15 05:54] LABS: BASOPHILS # (AUTO) 0.03 x10^3/uL (0-0.1); BASOPHILS % (AUTO) 0 % (0-1); EOSINOPHILS % (AUTO) 3 % (1-7); LYMPHOCYTES # (AUTO) 1.29 x10^3/uL (1-3.4); LYMPHOCYTES % (AUTO) 18 % (22-44); MD NO; MEAN CORPUSCULAR HEMOGLOBIN 32.2 pg (27.5-34.5); MEAN CORPUSCULAR HGB CONC 32.9 g/dL (33.2-36.2); MEAN CORPUSCULAR VOLUME 97.7 fL (81-97); MEAN PLATELET VOLUME 7.9 fL (7.4-10.4); MONOCYTES # (AUTO) 0.64 x10^3/uL (0.2-0.8); MONOCYTES % (AUTO) 9 % (2-9); NEUTROPHILS # (AUTO) 5.21 x10^3/uL (1.8-6.8); NEUTROPHILS % (AUTO) 71 % (42-75); PLATELET COUNT 134 x10^3/uL (130-400); RED BLOOD COUNT 3.86 x10^6/uL (4.38-5.82); RED CELL DISTRIBUTION WIDTH 14.4 % (9.4-14.8)
[2020-07-15 05:59] LABS: ANION GAP 5 mmol/L (5-15); CALCIUM 9.1 mg/dL (8.5-10.1); CHLORIDE 106 mmol/L (98-107)
[2020-07-15 09:25] VITALS: BP 135/82
[2020-07-15] MEDS: SODIUM CHLORIDE 0.9% 1,000 ML IV SCH (09:58)
[2020-07-15] MEDS: THIAMINE 100MG TABLET PO SCH ×2 (09:58→20:24)
[2020-07-15 12:42] VITALS: BP 127/81
[2020-07-15] MEDS: AMPICILLIN/SULBACTAM 3 GM in SODIUM CHLORIDE 0.9% 100 ML IV SCH ×2 (12:53→18:14)
[2020-07-15 20:31] VITALS: BP 148/88
[2020-07-16] MEDS: LORazepam 1MG TABLET PO PRN (00:59)
[2020-07-16] MEDS: AMPICILLIN/SULBACTAM 3 GM in SODIUM CHLORIDE 0.9% 100 ML IV SCH ×4 (00:59→18:25)
[2020-07-16] MEDS: ENOXAPARIN 40 MG/0.4 ML SQ SCH (01:07)
[2020-07-16] MEDS: LORazepam 2 MG/ML, 1ML IV PRN (01:28)
[2020-07-16 02:12] VITALS: BP 150/89
[2020-07-16] MEDS: VANCOMYCIN 1,300 MG in SODIUM CHLORIDE 0.9% 250 ML IV SCH ×2 (02:42→15:39)
[2020-07-16] MEDS: SODIUM CHLORIDE 0.9% 1,000 ML IV SCH (02:43)
--- NOTE | 2020-07-16 04:11 | NUR ---
HEAVENLY ROSEN - Fall Risk Medication(s) present and receiving anticoagulants.
[2020-07-16 06:36] VITALS: BP 125/72
[2020-07-16 13:06] VITALS: BP 130/88
[2020-07-16] MEDS: THIAMINE 100MG TABLET PO SCH ×2 (13:20→20:41)
[2020-07-16] MEDS: ACETAMINOPHEN 325 MG TABLET PO PRN (20:41)
[2020-07-16 20:45] VITALS: BP 152/89
[2020-07-16] MEDS: LORazepam 0.5MG TABLET PO PRN (23:15)
[2020-07-17] MEDS: AMPICILLIN/SULBACTAM 3 GM in SODIUM CHLORIDE 0.9% 100 ML IV SCH ×4 (00:07→17:35)
[2020-07-17 01:28] VITALS: BP 137/83
[2020-07-17] MEDS: ENOXAPARIN 40 MG/0.4 ML SQ SCH (01:37)
[2020-07-17] MEDS: SODIUM CHLORIDE 0.9% 1,000 ML IV SCH (01:37)
[2020-07-17] MEDS: VANCOMYCIN 1,300 MG in SODIUM CHLORIDE 0.9% 250 ML IV SCH ×2 (03:30→15:22)
[2020-07-17 07:21] VITALS: BP 149/98
[2020-07-17] MEDS: THIAMINE 100MG TABLET PO SCH ×2 (08:59→20:36)
[2020-07-17] MEDS: ACETAMINOPHEN 325 MG TABLET PO PRN ×2 (09:12→20:35)
[2020-07-17 14:58] VITALS: BP 140/89
[2020-07-17 19:59] VITALS: BP 156/101
[2020-07-17] MEDS: LORazepam 1MG TABLET PO PRN (20:35)
[2020-07-18] MEDS: AMPICILLIN/SULBACTAM 3 GM in SODIUM CHLORIDE 0.9% 100 ML IV SCH ×4 (01:08→18:01)
[2020-07-18 01:55] VITALS: BP 142/92
[2020-07-18] MEDS: ENOXAPARIN 40 MG/0.4 ML SQ SCH (02:00)
[2020-07-18] MEDS: ACETAMINOPHEN 325 MG TABLET PO PRN ×3 (03:59→20:11)
[2020-07-18] MEDS: VANCOMYCIN 1,300 MG in SODIUM CHLORIDE 0.9% 250 ML IV SCH ×2 (03:59→15:47)
[2020-07-18] MEDS: LORazepam 2 MG/ML, 1ML IV PRN ×2 (04:22→20:24)
[2020-07-18 07:49] VITALS: BP 126/86
[2020-07-18] MEDS: THIAMINE 100MG TABLET PO SCH ×2 (08:55→20:11)
[2020-07-18] MEDS: LORazepam 0.5MG TABLET PO PRN (12:12)
[2020-07-18 14:56] VITALS: BP 126/83
[2020-07-18 20:01] VITALS: BP 166/102
[2020-07-19 00:54] VITALS: BP 138/82
[2020-07-19] MEDS: AMPICILLIN/SULBACTAM 3 GM in SODIUM CHLORIDE 0.9% 100 ML IV SCH ×4 (01:17→18:51)
[2020-07-19] MEDS: ENOXAPARIN 40 MG/0.4 ML SQ SCH (02:00)
[2020-07-19] MEDS: VANCOMYCIN 1,300 MG in SODIUM CHLORIDE 0.9% 250 ML IV SCH ×2 (04:05→15:34)
[2020-07-19 08:20] VITALS: BP 109/74
[2020-07-19] MEDS: THIAMINE 100MG TABLET PO SCH ×2 (09:12→20:12)
[2020-07-19] MEDS: ACETAMINOPHEN 325 MG TABLET PO PRN ×2 (09:18→20:12)
[2020-07-19] MEDS ORDERED: HYDROCORTISONE CRM 1%, 30GM TP PRN (11:00)
[2020-07-19 14:24] VITALS: BP 112/64
[2020-07-19 20:00] VITALS: BP 156/91
[2020-07-20] MEDS: AMPICILLIN/SULBACTAM 3 GM in SODIUM CHLORIDE 0.9% 100 ML IV SCH ×4 (00:37→18:20)
[2020-07-20 00:45] VITALS: BP 137/82
[2020-07-20] MEDS: ENOXAPARIN 40 MG/0.4 ML SQ SCH (01:09)
[2020-07-20] MEDS: VANCOMYCIN 1,300 MG in SODIUM CHLORIDE 0.9% 250 ML IV SCH ×2 (03:59→16:04)
[2020-07-20 05:47] LABS: CREATININE 0.59 mg/dL (0.7-1.3)
[2020-07-20] MEDS: ACETAMINOPHEN 325 MG TABLET PO PRN ×2 (08:28→21:35)
[2020-07-20] MEDS: THIAMINE 100MG TABLET PO SCH ×2 (08:28→20:14)
[2020-07-20 08:55] VITALS: BP 125/82
[2020-07-20] MEDS ORDERED: LIDOCAINE-MPF 1%, 5ML ONE (09:21)
[2020-07-20 12:05] VITALS: BP 164/92
[2020-07-20 21:26] VITALS: BP 149/90
[2020-07-21 00:27] VITALS: BP 136/83
[2020-07-21] MEDS: AMPICILLIN/SULBACTAM 3 GM in SODIUM CHLORIDE 0.9% 100 ML IV SCH ×4 (00:32→18:48)
[2020-07-21] MEDS: ENOXAPARIN 40 MG/0.4 ML SQ SCH (00:34)
[2020-07-21 03:41] LABS: BASOPHILS # (AUTO) 0.05 x10^3/uL (0-0.1); BASOPHILS % (AUTO) 1 % (0-1); EOSINOPHILS % (AUTO) 3 % (1-7); LYMPHOCYTES # (AUTO) 2.49 x10^3/uL (1-3.4); LYMPHOCYTES % (AUTO) 36 % (22-44); MD NO; MEAN CORPUSCULAR HEMOGLOBIN 31.7 pg (27.5-34.5); MEAN CORPUSCULAR VOLUME 96.1 fL (81-97); MEAN PLATELET VOLUME 7.9 fL (7.4-10.4); MONOCYTES # (AUTO) 0.83 x10^3/uL (0.2-0.8); MONOCYTES % (AUTO) 12 % (2-9); NEUTROPHILS # (AUTO) 3.36 x10^3/uL (1.8-6.8); NEUTROPHILS % (AUTO) 48 % (42-75); PLATELET COUNT 315 x10^3/uL (130-400); RED BLOOD COUNT 4.06 x10^6/uL (4.38-5.82); RED CELL DISTRIBUTION WIDTH 14.3 % (9.4-14.8)
[2020-07-21 03:45] LABS: ANION GAP 6 mmol/L (5-15); CALCIUM 8.4 mg/dL (8.5-10.1); CHLORIDE 105 mmol/L (98-107)
[2020-07-21 03:51] LABS: CREATININE 0.67 mg/dL (0.7-1.3); VANCOMYCIN,TROUGH 16.2 mcg/mL (5.0-10.0)
[2020-07-21] MEDS: VANCOMYCIN 1,300 MG in SODIUM CHLORIDE 0.9% 250 ML IV SCH ×2 (03:53→15:49)
[2020-07-21 07:40] VITALS: BP 151/88
[2020-07-21] MEDS: THIAMINE 100MG TABLET PO SCH ×2 (07:52→21:03)
[2020-07-21] MEDS: ACETAMINOPHEN 325 MG TABLET PO PRN ×2 (07:52→21:04)
[2020-07-21] MEDS ORDERED: LIDOCAINE 1%, 10ML ONE (09:22)
[2020-07-21] MEDS: MULTIVIT.W/IRON, MINERALS ORAL SOL PO SCH (11:54)
[2020-07-21] MEDS: FOLIC ACID 1 MG TABLET PO SCH (11:54)
[2020-07-21 13:58] VITALS: BP 135/87
[2020-07-21] MEDS: ASCORBIC ACID 250 MG TAB PO SCH (17:37)
[2020-07-21 21:00] VITALS: BP 147/98
[2020-07-22] MEDS: AMPICILLIN/SULBACTAM 3 GM in SODIUM CHLORIDE 0.9% 100 ML IV SCH ×3 (00:44→17:36)
[2020-07-22 00:46] VITALS: BP_SYST 145; BP_SYST 151; BP_DIAS 102; BP_DIAS 99
[2020-07-22] MEDS: VANCOMYCIN 1,300 MG in SODIUM CHLORIDE 0.9% 250 ML IV SCH ×2 (03:38→20:58)
[2020-07-22] MEDS: ASCORBIC ACID 250 MG TAB PO SCH ×2 (08:00→17:00)
[2020-07-22 08:01] VITALS: BP 151/103
[2020-07-22 08:45] VITALS: BP 148/89
[2020-07-22] MEDS: THIAMINE 100MG TABLET PO SCH ×2 (08:58→20:58)
[2020-07-22] MEDS: FOLIC ACID 1 MG TABLET PO SCH (08:58)
[2020-07-22] MEDS: ACETAMINOPHEN 325 MG TABLET PO PRN ×2 (08:58→18:32)
[2020-07-22] MEDS: MULTIVIT.W/IRON, MINERALS ORAL SOL PO SCH (08:58)
[2020-07-22] MEDS: LISINOPRIL 5 MG TABLET PO SCH (09:51)
[2020-07-22] MEDS: ENOXAPARIN 40 MG/0.4 ML SQ SCH (09:52)
[2020-07-22 13:00] VITALS: BP 113/76
[2020-07-22 21:03] VITALS: BP 130/78
[2020-07-23] MEDS: AMPICILLIN/SULBACTAM 3 GM in SODIUM CHLORIDE 0.9% 100 ML IV SCH ×3 (00:09→12:00)
[2020-07-23 01:03] VITALS: BP 123/83
[2020-07-23 08:08] VITALS: BP 145/96
[2020-07-23] MEDS: MULTIVIT.W/IRON, MINERALS ORAL SOL PO SCH (09:00)
[2020-07-23] MEDS: VANCOMYCIN 1,300 MG in SODIUM CHLORIDE 0.9% 250 ML IV SCH (09:33)
[2020-07-23] MEDS: FOLIC ACID 1 MG TABLET PO SCH (09:33)
[2020-07-23] MEDS: LISINOPRIL 5 MG TABLET PO SCH (09:33)
[2020-07-23] MEDS: ASCORBIC ACID 250 MG TAB PO SCH ×2 (09:33→15:58)
[2020-07-23] MEDS: ENOXAPARIN 40 MG/0.4 ML SQ SCH (09:33)
[2020-07-23] MEDS: THIAMINE 100MG TABLET PO SCH ×2 (09:33→20:17)
[2020-07-23] MEDS: NAPROXEN 250 MG TABLET PO SCH ×2 (11:00→20:17)
[2020-07-23] MEDS: MULTIVITAMINS WITH IRON TABLET PO SCH (12:30)
[2020-07-23 14:50] VITALS: BP 133/91
[2020-07-23] MEDS: LACTOBACILLUS CHEW TABLET PO SCH ×2 (15:58→20:17)
[2020-07-23] MEDS ORDERED: AMOXICILLIN/CLAV 875-125MG TABLET ONE (16:01)
[2020-07-23 19:42] VITALS: BP 129/86
[2020-07-23] MEDS: AMOXICILLIN/CLAV 875-125MG TABLET PO SCH (20:17)
[2020-07-23] MEDS ORDERED: AMOXICILLIN/CLAV 875-125MG TABLET PO SCH (21:00)
[2020-07-24] MEDS: LACTOBACILLUS CHEW TABLET PO SCH ×2 (06:36→09:49)
[2020-07-24 08:40] VITALS: BP 113/80
[2020-07-24] MEDS: THIAMINE 100MG TABLET PO SCH (09:00)
[2020-07-24] MEDS: ENOXAPARIN 40 MG/0.4 ML SQ SCH (09:49)
[2020-07-24] MEDS: AMOXICILLIN/CLAV 875-125MG TABLET PO SCH (09:49)
[2020-07-24] MEDS: MULTIVITAMINS WITH IRON TABLET PO SCH (09:49)
[2020-07-24] MEDS: NAPROXEN 250 MG TABLET PO SCH (09:49)
[2020-07-24] MEDS: ASCORBIC ACID 250 MG TAB PO SCH (09:49)
[2020-07-24] MEDS: LISINOPRIL 5 MG TABLET PO SCH (09:49)
[2020-07-24] MEDS: FOLIC ACID 1 MG TABLET PO SCH (09:50)
[2020-07-24] MEDS ORDERED: FOLI-17 PO (10:49)
[2020-07-24] MEDS ORDERED: MULT1TAB81 PO (10:49)
[2020-07-24] MEDS ORDERED: ACID1TAB7 PO (10:49)
[2020-07-24] MEDS ORDERED: ACET325T26 PO (10:49)
[2020-07-24] MEDS ORDERED: NAPR250T6 PO (10:49)
[2020-07-24] MEDS ORDERED: THIA100T67 PO (10:49)
[2020-07-24] MEDS ORDERED: AMOX1TAB12 PO (10:49)
[2020-07-24] MEDS ORDERED: LISI5TAB7 PO (10:49)
== END 2020-07-24 13:11 | disposition home or self-care (01) | DRG 602 ==
LOC: ED 23:42 → EDIP 07-14 02:20 → 3N 07-14 02:26
PROVIDERS: ADMIT Internal Medicine; ATTEND Internal Medicine
PROC: 0S9C3ZZ Drainage of Right Knee Joint, Percutaneous Approach (ICD-10-PCS; principal; 2020-07-21)
DX: L03.114 Cellulitis of left upper limb (principal); J18.9 Pneumonia, unspecified organism; J96.01 Acute respiratory failure with hypoxia; E87.1 Hypo-osmolality and hyponatremia; F10.239 Alcohol dependence with withdrawal, unspecified; J81.1 Chronic pulmonary edema; J98.11 Atelectasis; D64.9 Anemia, unspecified; D69.59 Other secondary thrombocytopenia; D75.89 Other specified diseases of blood and blood-forming organs; F17.200 Nicotine dependence, unspecified, uncomplicated; G47.00 Insomnia, unspecified; I10 Essential (primary) hypertension; W18.39XA Other fall on same level, initial encounter; K70.10 Alcoholic hepatitis without ascites; M11.261 Other chondrocalcinosis, right knee; R56.9 Unspecified convulsions; Z59.0 Homelessness; Z87.891 Personal history of nicotine dependence; Z79.899 Other long term (current) drug therapy; Y93.89 Activity, other specified; Y92.89 Other specified places as the place of occurrence of the external cause; Y99.8 Other external cause status
CPT/HCPCS: 36415; 73560; 89050; 89060; 96365; 99285; J3490; 20605; 20611; 36561; 70450; 71045; 80048; 80053; 80202; 80307; 82040; 82565; 82962; 83036; 83605; 83735; 83880; 84443; 84484; 85025; 85610; 85810; 87040; 87070; 87075; 87205; 93005; G0378; J0295; J0696; J1650; J3370; C1788; J2060; J7030; J7050

== ENCOUNTER 2020-11-02 13:47 | Inpatient (IN) | payer MEDICAID ==
[~2020-11-02] VITALS: Ht 172.7 cm; Wt 57.0 kg
[~2020-11-02 13:47] MED LIST: ACET325T26 PO; ACID1TAB7 PO; AMOX1TAB12 PO; FOLI-17 PO; LISI5TAB7 PO; MULT1TAB81 PO; NAPR250T6 PO; THIA100T67 PO
--- NOTE | 2020-11-02 13:56 | NUR ---
PT BIB EMS AFTER A BYSTANDER SAID "HE PASSED OUT". PT STATES HE "DOESNT REMEMBER IF HE PASSED OUT OR NOT". UPON ARRIVAL PT WAS COVERED IN BED BUGS AND LICE. PT TAKEN TO [facility] AND CLEANED WITH SOAP AND WATER. ALL OF PTS BELONGINGS IN RED BIO HAZARD BAGS. PTS ENTIRE BODY IS COVERED IN BUG BITES. PT FUIRISOULY SCRATCHING AT THEM. EDUCATED PT ON NOT TO SCRATCH. PT RESTING IN GURNEY. AWAITING MD ORDERS
--- NOTE | 2020-11-02 15:19 | NUR ---
PT TO CT AT THIS TIME
--- NOTE | 2020-11-02 15:26 | NUR ---
PT PROVIDED WITH CRACKERS. OK PER
--- NOTE | 2020-11-02 15:44 | NUR ---
PT REMOVING O2. PT EDUCATED TWICE ON NOT TO REMOVE HIS OXYGEN. HE CONTINUES TO DO SO
[2020-11-02 16:12] LABS: BASOPHILS % (AUTO) 1 % (0-1); EOSINOPHILS % (AUTO) 2 % (1-7); LYMPHOCYTES % (AUTO) 37 % (22-44); MEAN CORPUSCULAR HEMOGLOBIN 31.4 pg (27.5-34.5); MEAN CORPUSCULAR HGB CONC 33.1 g/dL (33.2-36.2); MEAN PLATELET VOLUME 7.4 fL (7.4-10.4); MONOCYTES % (AUTO) 6 % (2-9); NEUTROPHILS % (AUTO) 54 % (42-75); PLATELET COUNT 223 x10^3/uL (130-400); RED CELL DISTRIBUTION WIDTH 16.7 % (9.4-14.8)
[2020-11-02 16:22] LABS: ALANINE AMINOTRANSFERASE 125 U/L (12-78); ALBUMIN 2.3 g/dL (3.4-5.0); ANION GAP 8 mmol/L (5-15); CALCIUM 7.9 mg/dL (8.5-10.1); CHLORIDE 105 mmol/L (98-107); CREATININE 0.77 mg/dL (0.7-1.3)
[2020-11-02 16:26] LABS: ALKALINE PHOSPHATASE 170 U/L (45-117); BILIRUBIN,TOTAL 0.6 mg/dL (0.2-1.0); TOTAL PROTEIN 8.6 g/dL (6.4-8.2); TROPONIN I < 0.015 ng/mL (0.000-0.045)
[2020-11-02 16:28] LABS: MD NO
--- NOTE | 2020-11-02 16:45 | NUR ---
PT O2 SAT DROPS WHEN HE IS NOT ON 02 TO THE HIGH 70S. NOTIFIED. Addendum: 11/02/20 at 1732 by SOFIYA ROOM AIR TEST - ROOM AIR SAT AT 91%.
--- NOTE | 2020-11-02 18:36 | NUR ---
PT PROVIDED WITH JAIMIE
--- NOTE | 2020-11-02 19:12 | NUR ---
AWAITING CT AT THIS TIME.
--- NOTE | 2020-11-02 19:22 | NUR ---
SPOKE TO CT IN REGARDS TO THE EXTENDED WAIT TIME. PER CT THE CT ROOM #2 IS DIRTY AND EVS IS ON LUNCH RIGHT NOW AND IT CANT BE CLEANED. CALLED EVS AND ORDERED A STAT CLEAN ON CT ROOM #2
[2020-11-02] MEDS ORDERED: OMNIPAQUE 350 MG/ML, 100ML BOTTLE ONE (19:51)
--- NOTE | 2020-11-02 21:55 | NUR ---
REPORT RECIEVED FROM LYDIA ARREDONDO. PT RESTING IN ROOM WATCHING TV. NO NEEDS AT THIS TIME
--- NOTE | 2020-11-02 22:44 | NUR ---
pt taking off and has to be continuously reminded to leave on. pt provided water per request
--- NOTE | 2020-11-02 22:55 | NUR ---
hospitalist at bedside
--- NOTE | 2020-11-02 23:08 | NUR ---
PT PROVIDED COFEE AND CRACKERS. OK PER HOSPITALIST
[2020-11-03] MEDS ORDERED: DOCUSATE 100 MG CAPSULE PO PRN
[2020-11-03] MEDS ORDERED: MELATONIN 5 MG TABLET PO PRN
[2020-11-03] MEDS ORDERED: LIDODERM 5% PATCH TD PRN
[2020-11-03] MEDS ORDERED: GUAIFENESIN/DM 200-20MG, 10ML UDC PO PRN
[2020-11-03] MEDS ORDERED: LABETALOL 5MG/ML, 20ML IVPush PRN
[2020-11-03] MEDS ORDERED: ENOXAPARIN 40 MG/0.4 ML ONE (00:09)
[2020-11-03] MEDS: ENOXAPARIN 40 MG/0.4 ML SQ SCH (00:14)
--- NOTE | 2020-11-03 00:56 | NUR ---
PT RESTING IN BED, TOLD TO PUT 02 BACK ON, NO OTHER NEEDS AT THIS TIME
--- NOTE | 2020-11-03 02:55 | NUR ---
PT WATCHING TV, STATES NO NEEDS AT THIS TIME, PT REMINDED TO KEEP 02 ON.
--- NOTE | 2020-11-03 03:26 | NUR ---
report given to marion savage.
[2020-11-03] MEDS ORDERED: ALBUTEROL-IPRATROPIUM MDI INH INH PRN (04:00)
--- NOTE | 2020-11-03 04:17 | NUR ---
PT SLEEPING, UNDERSTANDING OF ADMIT POC, NO NEEDS AT THIS TIME
[2020-11-03 04:38] VITALS: BP 161/101
[2020-11-03] MEDS: DIPHENHYDRAMINE 25 MG CAPSULE PO PRN ×4 (05:33→22:07)
[2020-11-03] MEDS: ACETAMINOPHEN 325 MG TABLET PO PRN ×2 (05:33→10:05)
[2020-11-03 06:38] VITALS: BP 143/86
[2020-11-03 07:33] LABS: BASOPHILS % (AUTO) 1 % (0-1); EOSINOPHILS % (AUTO) 2 % (1-7); LYMPHOCYTES % (AUTO) 23 % (22-44); MEAN CORPUSCULAR HGB CONC 33.8 g/dL (33.2-36.2); MEAN PLATELET VOLUME 7.5 fL (7.4-10.4); MONOCYTES % (AUTO) 11 % (2-9); NEUTROPHILS % (AUTO) 64 % (42-75); PLATELET COUNT 191 x10^3/uL (130-400); RED BLOOD COUNT 4.16 x10^6/uL (4.38-5.82); RED CELL DISTRIBUTION WIDTH 16.9 % (9.4-14.8)
[2020-11-03 07:42] LABS: ANION GAP 5 mmol/L (5-15); CALCIUM 8.3 mg/dL (8.5-10.1); CHLORIDE 102 mmol/L (98-107); CREATININE 0.75 mg/dL (0.7-1.3)
[2020-11-03 07:48] LABS: MD NO
[2020-11-03 13:50] VITALS: BP 146/85
[2020-11-03 19:23] VITALS: BP 150/91
[2020-11-03 19:34] LABS: MICROSCOPIC AUTO
[2020-11-03] MEDS ORDERED: LORazepam 2 MG/ML, 1ML IVPush ONE (20:30)
[2020-11-03] MEDS ORDERED: LORazepam 2 MG/ML, 1ML IV PRN ×5 (22:00)
[2020-11-03] MEDS: BACLOFEN 10 MG TABLET PO SCH (22:07)
[2020-11-04] MEDS: ENOXAPARIN 40 MG/0.4 ML SQ SCH (00:02)
[2020-11-04 00:39] VITALS: BP 128/84
[2020-11-04 06:36] LABS: BASOPHILS % (AUTO) 0 % (0-1); EOSINOPHILS % (AUTO) 1 % (1-7); LYMPHOCYTES % (AUTO) 24 % (22-44); MEAN CORPUSCULAR HEMOGLOBIN 31.6 pg (27.5-34.5); MEAN CORPUSCULAR HGB CONC 33.7 g/dL (33.2-36.2); MEAN PLATELET VOLUME 7.9 fL (7.4-10.4); MONOCYTES % (AUTO) 7 % (2-9); NEUTROPHILS % (AUTO) 67 % (42-75); PLATELET COUNT 204 x10^3/uL (130-400); RED BLOOD COUNT 4.06 x10^6/uL (4.38-5.82); RED CELL DISTRIBUTION WIDTH 16.6 % (9.4-14.8)
[2020-11-04 06:38] LABS: HCT (SEDRATE) 38.1 % (39.2-51.8)
[2020-11-04 06:39] LABS: MD NO
[2020-11-04 06:49] LABS: ALBUMIN 2.2 g/dL (3.4-5.0); ANION GAP 4 mmol/L (5-15); CALCIUM 8.5 mg/dL (8.5-10.1); CHLORIDE 102 mmol/L (98-107)
[2020-11-04 06:53] LABS: ALANINE AMINOTRANSFERASE 84 U/L (12-78); ALKALINE PHOSPHATASE 141 U/L (45-117); BILIRUBIN,TOTAL 0.9 mg/dL (0.2-1.0); CREATININE 0.78 mg/dL (0.7-1.3); TOTAL PROTEIN 8.2 g/dL (6.4-8.2)
[2020-11-04 07:17] VITALS: BP 141/88
[2020-11-04] MEDS: BACLOFEN 10 MG TABLET PO SCH ×2 (08:26→22:45)
[2020-11-04] MEDS: MULTIVITAMINS/MINERALS TABLET PO SCH (08:26)
[2020-11-04] MEDS: FOLIC ACID 1 MG TABLET PO SCH (08:26)
[2020-11-04] MEDS: THIAMINE 100MG TABLET PO SCH (08:27)
[2020-11-04 08:56] LABS: D-DIMER 1.95 ug/mlFEU (0.00-0.52); INTERNATIONAL NORMALIZED RATIO 1.07 (0.93-1.1); PROTHROMBIN TIME 11.3 Seconds (9.6-11.5)
[2020-11-04 12:21] VITALS: BP_SYST 120; BP_SYST 128; BP_DIAS 72; BP_DIAS 86
[2020-11-04 18:25] VITALS: BP 147/85
[2020-11-05] MEDS: ENOXAPARIN 40 MG/0.4 ML SQ SCH
[2020-11-05 00:44] VITALS: BP 134/87
[2020-11-05 06:20] VITALS: BP 113/76
[2020-11-05 06:30] LABS: BASOPHILS % (AUTO) 1 % (0-1); EOSINOPHILS % (AUTO) 1 % (1-7); LYMPHOCYTES % (AUTO) 28 % (22-44); MEAN CORPUSCULAR HEMOGLOBIN 31.5 pg (27.5-34.5); MEAN CORPUSCULAR HGB CONC 33.2 g/dL (33.2-36.2); MONOCYTES % (AUTO) 8 % (2-9); NEUTROPHILS % (AUTO) 62 % (42-75); PLATELET COUNT 189 x10^3/uL (130-400); RED BLOOD COUNT 4.49 x10^6/uL (4.38-5.82); RED CELL DISTRIBUTION WIDTH 16.5 % (9.4-14.8)
[2020-11-05 06:32] LABS: MD NO
[2020-11-05 06:42] LABS: CALCIUM 8.2 mg/dL (8.5-10.1); CHLORIDE 104 mmol/L (98-107)
[2020-11-05 06:47] LABS: ALANINE AMINOTRANSFERASE 79 U/L (12-78); ALBUMIN 2.2 g/dL (3.4-5.0); ALKALINE PHOSPHATASE 138 U/L (45-117); BILIRUBIN,TOTAL 0.8 mg/dL (0.2-1.0); CREATININE 0.87 mg/dL (0.7-1.3); TOTAL PROTEIN 8.7 g/dL (6.4-8.2)
[2020-11-05 07:06] LABS: ANION GAP 4 mmol/L (5-15)
[2020-11-05] MEDS: BACLOFEN 10 MG TABLET PO SCH ×2 (08:14→20:42)
[2020-11-05] MEDS: MULTIVITAMINS/MINERALS TABLET PO SCH (08:14)
[2020-11-05] MEDS: THIAMINE 100MG TABLET PO SCH (08:14)
[2020-11-05] MEDS: FOLIC ACID 1 MG TABLET PO SCH (08:14)
[2020-11-05 12:40] VITALS: BP 153/99
[2020-11-05] MEDS ORDERED: PERMETHRIN CRM 5%, 60GM TP SCH (18:30)
[2020-11-05 20:45] VITALS: BP 155/88
[2020-11-06] MEDS: ENOXAPARIN 40 MG/0.4 ML SQ SCH (00:11)
[2020-11-06 00:14] VITALS: BP 157/89
[2020-11-06 07:35] LABS: ALANINE AMINOTRANSFERASE 88 U/L (12-78); ALBUMIN 2.1 g/dL (3.4-5.0); ANION GAP 4 mmol/L (5-15); CALCIUM 8.1 mg/dL (8.5-10.1); CHLORIDE 106 mmol/L (98-107); CREATININE 0.76 mg/dL (0.7-1.3)
[2020-11-06 07:37] LABS: ALKALINE PHOSPHATASE 122 U/L (45-117); BILIRUBIN,TOTAL 0.8 mg/dL (0.2-1.0)
[2020-11-06 07:39] LABS: BASOPHILS % (AUTO) 1 % (0-1); EOSINOPHILS % (AUTO) 1 % (1-7); LYMPHOCYTES % (AUTO) 26 % (22-44); MEAN CORPUSCULAR HEMOGLOBIN 31.6 pg (27.5-34.5); MEAN CORPUSCULAR HGB CONC 33.2 g/dL (33.2-36.2); MEAN PLATELET VOLUME 8.1 fL (7.4-10.4); MONOCYTES % (AUTO) 10 % (2-9); NEUTROPHILS % (AUTO) 62 % (42-75); PLATELET COUNT 196 x10^3/uL (130-400); RED BLOOD COUNT 4.17 x10^6/uL (4.38-5.82)
[2020-11-06 08:07] VITALS: BP 150/96
[2020-11-06] MEDS: FOLIC ACID 1 MG TABLET PO SCH (08:14)
[2020-11-06] MEDS: MULTIVITAMINS/MINERALS TABLET PO SCH (08:14)
[2020-11-06] MEDS: BACLOFEN 10 MG TABLET PO SCH (08:14)
[2020-11-06] MEDS: THIAMINE 100MG TABLET PO SCH (08:14)
[2020-11-06 08:23] LABS: MD SCAN
[2020-11-06] MEDS: ACETAMINOPHEN 325 MG TABLET PO PRN (11:41)
[2020-11-06 14:15] VITALS: BP 127/88
[2020-11-06] MEDS ORDERED: BACLOFEN 10 MG TABLET PO PRN (19:00)
[2020-11-06 19:24] VITALS: BP 148/90
[2020-11-07] MEDS: ENOXAPARIN 40 MG/0.4 ML SQ SCH (00:22)
[2020-11-07 02:12] VITALS: BP 136/84
[2020-11-07 08:08] VITALS: BP 142/91
[2020-11-07] MEDS: THIAMINE 100MG TABLET PO SCH (10:02)
[2020-11-07] MEDS: MULTIVITAMINS/MINERALS TABLET PO SCH (10:03)
[2020-11-07] MEDS: FOLIC ACID 1 MG TABLET PO SCH (10:03)
[2020-11-07 13:00] VITALS: BP 137/89
[2020-11-07] MEDS ORDERED: GADOTERATE 7.5 MMOL/15 ML VIAL ONE (18:23)
[2020-11-07 21:10] VITALS: BP 149/86
[2020-11-07] MEDS: ACETAMINOPHEN 325 MG TABLET PO PRN (22:10)
[2020-11-08] MEDS: ENOXAPARIN 40 MG/0.4 ML SQ SCH
[2020-11-08 01:26] VITALS: BP 150/91
[2020-11-08 07:56] VITALS: BP 155/96
[2020-11-08] MEDS: MULTIVITAMINS/MINERALS TABLET PO SCH (09:09)
[2020-11-08] MEDS: FOLIC ACID 1 MG TABLET PO SCH (09:09)
[2020-11-08] MEDS: THIAMINE 100MG TABLET PO SCH (09:09)
[2020-11-08] MEDS: ACETAMINOPHEN 325 MG TABLET PO PRN (14:00)
[2020-11-08 14:18] VITALS: BP 128/76
== END 2020-11-08 18:17 | disposition home or self-care (01) | DRG 189 ==
LOC: ED 14:28 → EDIP 20:57 → 4WST 11-03 05:12 → 4NE 11-04 18:30
PROVIDERS: ADMIT Internal Medicine; ATTEND Hospitalist
DX: J96.01 Acute respiratory failure with hypoxia (principal); F10.239 Alcohol dependence with withdrawal, unspecified; J43.9 Emphysema, unspecified; Z20.828 Contact with and (suspected) exposure to other viral communicable diseases; I27.20 Pulmonary hypertension, unspecified; G62.9 Polyneuropathy, unspecified; F17.210 Nicotine dependence, cigarettes, uncomplicated; B88.8 Other specified infestations; K76.0 Fatty (change of) liver, not elsewhere classified; J32.9 Chronic sinusitis, unspecified; B18.2 Chronic viral hepatitis C; D18.09 Hemangioma of other sites; R56.9 Unspecified convulsions; Z59.0 Homelessness; Z71.6 Tobacco abuse counseling; Z79.899 Other long term (current) drug therapy
CPT/HCPCS: 36415; 70450; 71045; 71275; 72157; 76700; 80048; 80053; 80074; 81001; 83605; 83615; 83735; 83880; 84145; 84484; 85025; 85379; 85384; 85610; 85651; 87040; 87077; 87086; 87186; 87521; 87522; 87635; 93005; 93306; 93356; 93880; 96374; 99285; G0378; J1650; Q9967; A9575; J2060; J7512; Q0163

== ENCOUNTER 2020-11-26 17:18 | Emergency (ER) | payer MEDICAID ==
[~2020-11-26] VITALS: Ht 172.7 cm; Wt 65.0 kg
--- NOTE | 2020-11-26 17:21 | NUR ---
PT IN SHOWER DUE TO "BUGS" ALL OVER HIM.
--- NOTE | 2020-11-26 18:22 | NUR ---
PT BIB EMS COMPLAINING OF RT SHOULDER AND NECK PAIN WHICH IS MAKING HIM UNABLE TO WALK. HE WAS FOUND LAYING IN [facility]. HE WAS SEEN AT [facility] 2 DAYS AGO BUT STATES THEY TOLD HIM NOTHING BUT GAVE HIM A RX WHICH HE COULD NOT FILL BECAUSE HE HAS NO ID. HE ARRIVED WITH BODY LICE AND WENT TO THE [facility] ROOM. PT/S O2 SATURATION WAS 88% ON ROOM AIR. PLACED ON 2L O2 VIA NC AND IS NOW UP TO 96%. HE IS ALSO COMPLAINING OF RIGHT ARM PAIN FROM FALLING OFF A ROOF A YEAR AGO. WARM BLANKETS ARE PROVIDED. URINAL PROVIDED, CALL LIGHT WITHIN REACH. NO ADDITIONAL NEEDS VERBALIZED.
[2020-11-26] MEDS ORDERED: KETOROLAC 30 MG/1 ML ONE (18:26)
[2020-11-26] MEDS ORDERED: KETOROLAC 30 MG/1 ML IM ONE (18:30)
--- NOTE | 2020-11-26 18:39 | NUR ---
MEDICATED PATIENT PER EMAR. PATIENT COMPLAINS HE IS INCONTINENT OF URINE BUT WANTS URINAL TO TRY. COMPLAINING OF 9/10 PAIN. CALL LIGHT WITHIN REACH. NO ADDITIONAL NEEDS AT THIS TIME.
--- NOTE | 2020-11-26 18:44 | NUR ---
PATIENT TO XRAY
--- NOTE | 2020-11-26 18:47 | NUR ---
REPORT GIVEN TO TEOFILO FREEMAN,
--- NOTE | 2020-11-26 18:50 | NUR ---
REPORT FROM NUVIA FREEMAN, PT CARE TRANSFERRED AT THIS TIME.
--- NOTE | 2020-11-26 19:12 | NUR ---
PT RESTING ON GURPenelope's Purse, WATCHING TV, NAD, NO CHANGE IN CONDITION, STATES "I NEED SOMETHING FOR PAIN CAUSE THAT SHOT DIDNT WORK". ERP CIELO AWARE. WAITING FOR NICOLAS DANG, MATHEW.
[2020-11-26] MEDS ORDERED: HYDROcodone/APAP 5/325 TABLET PO ONE (19:30)
[2020-11-26] MEDS ORDERED: HYDROcodone/APAP 5/325 TABLET ONE (19:38)
[2020-11-26 20:03] VITALS: BP 161/99
--- NOTE | 2020-11-26 20:04 | NUR ---
PT PROVIDED NEW CLOTHING TO WEAR OUT OF HOSPITAL DUE TO HIS BEING DOUBLE BAGGED. PROVIDED CLOTHING APPROPRIATE FOR CURRENT WEATHER. PT NAD, GETTING CLOHTED AT THIS TIME. REQUESTED TAXI VOUCHER TO RECORD [facility]. BLAZE.
--- NOTE | 2020-11-26 20:05 | NUR ---
PT OFF NC 2L SATTING LOW 90S AT THIS TIME. WCTM.
--- NOTE | 2020-11-26 20:25 | NUR ---
Patient given discharge instructions and they have confirmed that they understand the instructions. Patient ambulatory with steady gait. nad, denies additional questions, provided taxi voucher and new clothing, no personal belongings left in room after dc.
== END 2020-11-26 20:25 | disposition home or self-care (01) ==
LOC: ED 17:48
DX: M19.90 Unspecified osteoarthritis, unspecified site (principal); M54.2 Cervicalgia; J44.9 Chronic obstructive pulmonary disease, unspecified; F17.200 Nicotine dependence, unspecified, uncomplicated
CPT/HCPCS: 72040; 73030; 96372; 99284; J1885

== ENCOUNTER 2020-11-27 15:35 | Emergency (ER) | payer MEDICAID ==
[~2020-11-27] VITALS: Ht 175.3 cm; Wt 85.0 kg
[2020-11-27] MEDS ORDERED: ACETAMINOPHEN 500 MG TABLET ONE (16:51)
--- NOTE | 2020-11-27 16:57 | NUR ---
GIVEN MEAL TRAY AND TYLENOL
[2020-11-27] MEDS ORDERED: ACETAMINOPHEN 500 MG TABLET PO ONE (17:30)
--- NOTE | 2020-11-27 18:43 | NUR ---
BEDSIDE REPORT RECEIVED FROM TAYLOR FREEMAN
--- NOTE | 2020-11-27 18:53 | NUR ---
PT SUPINE ON GURNEY RESTIGN COMFORTABLY WITH EYES CLOSED. PT DENIES ANY NEEDS AT THIS TIME. CALL LIGHT AND PERSONAL BELONGINGS WITHIN REACH.
[2020-11-27 18:54] VITALS: BP 134/88
--- NOTE | 2020-11-27 19:42 | NUR ---
PT PROVIDED URINAL PER REQUEST, NO ADDITIONAL NEEDS AT THIS TIME.
--- NOTE | 2020-11-27 21:43 | NUR ---
UNABLE TO FIND PT BELONGINGS UPON D/C DUE TO [facility] EARLIER IN PT VISIT. PT PROVIDED NEW CLOTHING, JACKET, SHOES AND SOCKS UPON DISCHARGE AND APPROPRIATE RESOURCES TO OBTAIN NEW ITEMS. PT ALSO PROVIDED TAXI VOUCHER AND MULTIPLE BUS PASSES ALONG WITH JAIMIE AT D/C.
== END 2020-11-27 22:12 | disposition home or self-care (01) ==
LOC: ED 16:46
DX: F10.229 Alcohol dependence with intoxication, unspecified (principal); G31.2 Degeneration of nervous system due to alcohol; J44.9 Chronic obstructive pulmonary disease, unspecified; F17.210 Nicotine dependence, cigarettes, uncomplicated; Y90.0 Blood alcohol level of less than 20 mg/100 ml
CPT/HCPCS: 29125; 99283; 99406